=== PATIENT | female | born 1985 | race Two or more races ===

== ENCOUNTER 2018-08-31 09:54 | Emergency (ER) | payer OTHER ==
[~2018-08-31] VITALS: Ht 162.6 cm; Wt 59.0 kg
[2018-08-31] MEDS ORDERED: INTESTINEX680 M1 PO (17:36)
[2018-08-31] MEDS ORDERED: CLINDAMYCIN HC300 MG PO (17:36)
[2018-08-31] MEDS ORDERED: KETO10TA2 PO (17:36)
== END 2018-08-31 18:05 | disposition home or self-care (01) ==
LOC: ER 09:54
DX: J35.01 Chronic tonsillitis (principal); E86.0 Dehydration

== ENCOUNTER 2018-09-01 10:04 | Emergency (ER) | payer OTHER ==
[~2018-09-01] VITALS: Ht 162.6 cm; Wt 512.6 kg
[~2018-09-01 10:04] MED LIST: CLINDAMYCIN HC300 MG PO; INTESTINEX680 M1 PO; KETO10TA2 PO
== END 2018-09-01 14:23 | disposition home or self-care (01) ==
LOC: ER 10:04
DX: J03.90 Acute tonsillitis, unspecified (principal)

== ENCOUNTER 2018-09-30 11:15 | Emergency (ER) | payer OTHER ==
[~2018-09-30] VITALS: Ht 162.6 cm; Wt 59.0 kg
[2018-09-30] MEDS ORDERED: CLEOCIN HCL300 MG (11:52)
[2018-09-30] MEDS ORDERED: FIORINAL 50-321 EACH (11:52)
== END 2018-09-30 14:18 | disposition home or self-care (01) ==
LOC: ER 11:15
DX: N76.4 Abscess of vulva (principal); T78.49XA Other allergy, initial encounter; R21 Rash and other nonspecific skin eruption

== ENCOUNTER 2020-01-13 05:35 | Day surgery (SDC) | payer OTHER ==
[~2020-01-13 05:35] MED LIST changes: +CLEOCIN HCL300 MG; +FIORINAL 50-321 EACH
== END 2020-01-13 18:00 | disposition home or self-care (01) ==
LOC: CIR.AMB 05:35
PROVIDERS: ATTEND Obstetrics & Gynecology
DX: N84.0 Polyp of corpus uteri (principal); Z20.828 Contact with and (suspected) exposure to other viral communicable diseases